=== PATIENT | female | born 1990 | race Caucasian/White ===

== ENCOUNTER 2017-08-20 14:48 | Emergency (ER) | payer BC, OTHER ==
[2017-08-20] MEDS ORDERED: LIDOCAINE 2% VISCOUS SOLN 20 ML UDCUP PO ONE (15:56)
[2017-08-20] MEDS ORDERED: MAG HYDROX/AL HYDROX/SIMETH SUSP 30 ML UDCUP PO ONE (15:56)
[2017-08-20] MEDS ORDERED: METOCLOPRAMIDE HCL ORAL SOLN 10 MG/10 ML UDCUP PO ONE (15:56)
--- NOTE | 2017-08-20 15:57 | ER Document Report ---
ED General - General Chief Complaint: Abdominal Pain Stated Complaint: ABDOMINAL PAIN,NAUSEA Time Seen by Provider: 08/20/17 15:37 Mode of Arrival: Ambulatory Information source: Patient Notes: 26-year-old female presents with complaints of epigastric abdominal pain of one- week duration. Patient notes it is a gnawing sensation, feels that she is hungry but she is not. Patient notes gastric reflux heartburn sensations. She denies any fevers or chills denies any nausea vomiting TRAVEL OUTSIDE OF THE [place] IN LAST 30 DAYS: No - HPI Onset: Last week Onset/Duration: Persistent Quality of pain: Burning Severity: Mild Pain Level: 1 Associated symptoms: Other Exacerbated by: Food Relieved by: Food Similar symptoms previously: No Recently seen / treated by doctor: No - Related Data Allergies/Adverse Reactions: No Known Allergies Allergy (Unverified 08/20/17 14:49) Past Medical History - Social History Smoking Status: Current Some Day Smoker Cigarette use (# per day): Yes Chew tobacco use (# tins/day): No Smoking Education Provided: No Frequency of alcohol use: Occasional Drug Abuse: None Family History: Reviewed & Not Pertinent Patient has suicidal ideation: No Patient has homicidal ideation: No Renal/ Medical History: Denies: Hx Peritoneal Dialysis Review of Systems - Review of Systems Notes: REVIEW OF SYSTEMS: CONSTITUTIONAL : Denies fever, chills, or sweats. Denies recent illness. EENT: Denies eye, ear, throat, or mouth pain or symptoms. Denies nasal or sinus congestion or discharge. Denies throat, tongue, or mouth swelling or difficulty swallowing. CARDIOVASCULAR: Denies chest pain. Denies palpitations or racing or irregular heart beat. Denies ankle edema. RESPIRATORY: Denies cough, cold, or chest congestion. Denies shortness of breath, difficulty breathing, or wheezing. GASTROINTESTINAL: Admits to epigastric pain GENITOURINARY: Denies difficulty urinating, painful urination, burning, frequency, blood in urine, or discharge. FEMALE GENITOURINARY: Denies vaginal bleeding, heavy or abnormal periods, irregular periods. Denies vaginal discharge or odor. MUSCULOSKELETAL: Denies back or neck pain or stiffness. Denies joint pain or swelling. SKIN: Denies rash, lesions or sores. HEMATOLOGIC : Denies easy bruising or bleeding. LYMPHATIC: Denies swollen, enlarged glands. NEUROLOGICAL: Denies confusion or altered mental status. Denies passing out or loss of consciousness. Denies dizziness or lightheadedness. Denies headache. Denies weakness or paralysis or loss of use of either side. Denies problems with gait or speech. Denies sensory loss, numbness, or tingling. Denies seizures. PSYCHIATRIC: Denies anxiety or stress. Denies depression, suicidal ideation, or homicidal ideation. ALL OTHER SYSTEMS REVIEWED AND NEGATIVE. PHYSICAL EXAMINATION: GENERAL: Well-appearing, well-nourished and in no acute distress. HEAD: Atraumatic, normocephalic. EYES: Pupils equal round and reactive to light, extraocular movements intact, conjunctiva are normal. ENT: Nares patent, oropharynx clear without exudates. Moist mucous membranes. NECK: Normal range of motion, supple without lymphadenopathy LUNGS: Breath sounds clear to auscultation bilaterally and equal. No wheezes rales or rhonchi. HEART: Regular rate and rhythm without murmurs ABDOMEN: Soft, minimally tender in epigastric region, nondistended abdomen. No guarding, no rebound. No masses appreciated. Female : deferred Musculoskeletal: Normal range of motion, no pitting or edema. No cyanosis. NEUROLOGICAL: Cranial nerves grossly intact. Normal speech, normal gait. Normal sensory, motor exams PSYCH: Normal mood, normal affect. SKIN: Warm, Dry, normal turgor, no rashes or lesions noted. Dictation was performed using [employer] voice recognition software Physical Exam - Vital signs Vitals: Temp Pulse Resp BP Pulse Ox 98.5 F 72 18 131/80 H 98 08/20/17 15:04 08/20/17 15:04 08/20/17 15:04 08/20/17 15:04 08/20/17 15:04 Course - Re-evaluation Re-evalutation: 08/20/17 19:44 Patient was given GI cocktail symptoms have resolved, epigastric pain is probably secondary to an ulceration versus gastric reflux, lab work noted no significant abnormality, I will discharge the patient home to continue the cimetidine that she is already on 200 mg twice daily Patient has been given GI follow-up very strict return precautions H. pylori testing pending After performing a Medical Screening Examination, I estimate there is LOW risk for ACUTE APPENDICITIS, BOWEL OBSTRUCTION, ACUTE CHOLECYSTITIS, PERFORATED DIVERTICULITIS, INCARCERATED HERNIA, PANCREATITIS, PELVIC INFLAMMATORY DISEASE, PERFORATED ULCER, ECTOPIC , or TUBO-OVARIAN ABSCESS, thus I consider the discharge disposition reasonable. Also, there is no evidence or peritonitis , sepsis, or toxicity. I have reevaluated this patient multiple times and no significant life threatening changes are noted. The patient and I have discussed the diagnosis and risks, and we agree with discharging home with close follow-up with the understanding that symptoms and presentations can change. We also discussed returning to the Emergency Department immediately if new or worsening symptoms occur. We have discussed the symptoms which are most concerning (e.g., bloody stool, fever, changing or worsening pain, vomiting) that necessitate immediate return. - Vital Signs Vital signs: Temp Pulse Resp BP Pulse Ox 97.5 F 84 16 132/82 H 100 08/20/17 17:27 08/20/17 17:27 08/20/17 17:27 08/20/17 17:27 08/20/17 17:27 - Laboratory Result Diagrams: 08/20/17 16:04 08/20/17 16:04 Laboratory results interpreted by me: 08/20/17 16:04 Calcium 10.3 H Albumin 5.2 H Discharge - Discharge Clinical Impression: Epigastric pain GERD (gastroesophageal reflux disease) Qualifiers: Esophagitis presence: with esophagitis Qualified Code(s): K21.0 - Gastro- esophageal reflux disease with esophagitis Condition: Stable Disposition: HOME, SELF-CARE Instructions: Reflux Disease (GERD) ([facility]) Referrals: NELSON RIVERA MD [ACTIVE STAFF] - Follow up in 3-5 days
[2017-08-20 16:13] LABS: ABSOLUTE EOSINOPHILS # (AUTO) 0.1 10^3/uL (0.0-0.6); ABSOLUTE LYMPHOCYTES (AUTO) 1.5 10^3/uL (0.5-4.7); ABSOLUTE MONOCYTES (AUTO) 0.3 10^3/uL (0.1-1.4); ABSOLUTE NEUT (AUTO) 3.9 10^3/uL (1.7-8.2); BASOPHILS % (AUTO) 0.6 % (0-2); EOSINOPHILS % (AUTO) 2.2 % (0-6); HEMOGLOBIN 15.2 g/dL (12.0-15.5); MEAN CORPUSCULAR HEMOGLOBIN 29.9 pg (27.0-33.4); MEAN CORPUSCULAR HGB CONC 34.5 g/dL (32.0-36.0); MEAN CORPUSCULAR VOLUME 87 fl (80-97); MONOCYTES % (AUTO) 5.2 % (3-13); PLATELET COUNT 251 10^3/uL (150-450); RED BLOOD COUNT 5.08 10^6/uL (3.72-5.28); RED CELL DISTRIBUTION WIDTH 12.7 % (11.5-14.0); TOTAL CELLS COUNTED % (AUTO) 100 %
[2017-08-20 16:31] LABS: ALANINE AMINOTRANSFERASE 34 U/L (9-52); ALBUMIN 5.2 g/dL (3.5-5.0); ALKALINE PHOSPHATASE 71 U/L (38-126); ANION GAP 12 (5-19); ASPARTATE AMINO TRANSFERASE 20 U/L (14-36); BILIRUBIN,DIRECT 0.3 mg/dL (0.0-0.4); BILIRUBIN,TOTAL 0.5 mg/dL (0.2-1.3); BLOOD UREA NITROGEN 11 mg/dL (7-20); CALCIUM 10.3 mg/dL (8.4-10.2); CARBON DIOXIDE 29 mmol/L (22-30); CHLORIDE 99 mmol/L (98-107); GLUCOSE 94 mg/dL (75-110); LIPASE 92.7 U/L (23-300); POTASSIUM 4.4 mmol/L (3.6-5.0); SODIUM 139.7 mmol/L (137-145); TOTAL PROTEIN 8.1 g/dL (6.3-8.2)
[2017-08-20 17:28] VITALS: BP 132/82
== END 2017-08-20 17:40 | disposition home or self-care (01) ==
LOC: ER 14:48
DX: R10.13 Epigastric pain (principal); F17.210 Nicotine dependence, cigarettes, uncomplicated; K21.0 Gastro-esophageal reflux disease with esophagitis
CPT/HCPCS: 99284; 86677 ×3; 36415; 83690; 85025; 80053; J3490

== ENCOUNTER → 2018-10-25 | Outpatient (CLI) | payer SELFPAY ==
--- NOTE | 2018-10-25 14:20 | RADIOLOGY REPORT (SQ) ---
EXAM DESCRIPTION: U/S [id number] TRNABD 1GES W/ODOP COMPLETED DATE/TIME: 10/25/2018 1:28 pm REASON FOR STUDY: Z34.01 ENCOUNTER FOR SUPERVISION OF NORMAL FIRST , FIRST TRIMESTER Z34.01 ENCNTR FOR SUPRVSN OF NORMAL FIRST PREG, FIRST TRIMES COMPARISON: None. TECHNIQUE: Transabdominal static and realtime grayscale images acquired of the pelvis. Additional se lected spectral and color Doppler images recorded. All images stored on PACs. bHCG: Not available CLINICAL DATES: LMP 08/18/2018. 9 weeks 5 days. LIMITATIONS: None. FINDINGS: FETUS: Single Living intrauterine . ULTRASOUND EGA: 9 weeks 5 days. ULTRASOUND NAZANIN: 05/25/2019. EFW: Not applicable less than 20 weeks. CRL: 2.8 cm. FHR: 157 beats per minute. SURVEY: Too early to assess. AMNIOTIC FLUID: Adequate amount. PLACENTA: Not yet developed due to early gestation. SUBCHORIONIC BLEED: No SIZE OF BLEED: Not applicable. UTERUS: No masses or anomalies. 12.1 x 7 x 6.9 cm. CERVICAL LENGTH: 2.6 cm. Closed. RIGHT ADNEXA: Normal ovary with normal vascular flow. There is a 1.8 x 1.7 x 1.4 cm corpus luteum. No adnexal free fluid. No adnexal masses. LEFT ADNEXA: Ovary not seen. No adnexal free fluid. No adnexal masses. FREE FLUID: None. OTHER: No other significant finding. IMPRESSION: LIVING INTRAUTERINE . EGA 9 weeks 5 days. Trimester of : First - 0 to 13 weeks. TECHNICAL DOCUMENTATION: JOB ID: [id number]- All Rights Reserved rev-12/18 Reading location - IP/workstation name: [email or web address]
== END ==
LOC: RAD 13:34
PROVIDERS: ATTEND Midwife
DX: Z34.01 Encounter for supervision of normal first pregnancy, first trimester (principal)
CPT/HCPCS: 76801

== ENCOUNTER 2019-05-20 16:23 | Inpatient (IN) | payer MEDICAID ==
[2019-05-20] MEDS ORDERED: OXYTOCIN/NORMAL SALINE 20 UNIT/1,000 ML RTUINJ IV PRN (16:30)
[2019-05-20] MEDS ORDERED: RINGERS SOLUTION,LACTATED 300 ML IV ONE (16:30)
[2019-05-20 17:09] LABS: ABSOLUTE EOSINOPHILS # (AUTO) 0.1 10^3/uL (0.0-0.6); ABSOLUTE LYMPHOCYTES (AUTO) 1.4 10^3/uL (0.5-4.7); ABSOLUTE MONOCYTES (AUTO) 0.3 10^3/uL (0.1-1.4); ABSOLUTE NEUT (AUTO) 6.7 10^3/uL (1.7-8.2); BASOPHILS % (AUTO) 0.3 % (0-2); EOSINOPHILS % (AUTO) 1.5 % (0-6); HEMATOCRIT 33.2 % (36.0-47.0); HEMOGLOBIN 11.3 g/dL (12.0-15.5); LYMPHOCYTES % (AUTO) 16.1 % (13-45); MEAN CORPUSCULAR HGB CONC 34.1 g/dL (32.0-36.0); MEAN CORPUSCULAR VOLUME 85 fl (80-97); MONOCYTES % (AUTO) 3.9 % (3-13); PLATELET COUNT 221 10^3/uL (150-450); RED BLOOD COUNT 3.91 10^6/uL (3.72-5.28); RED CELL DISTRIBUTION WIDTH 13.9 % (11.5-14.0); SEGMENTED NEUTROPHILS % (AUTO) 78.2 % (42-78); TOTAL CELLS COUNTED % (AUTO) 100 %; WHITE BLOOD COUNT 8.6 10^3/uL (4.0-10.5)
--- NOTE | 2019-05-20 17:09 | Admission Physical ---
Datetime Report Generated by CPN: 05/20/2019 17:09 CURRENT ADMISSION Chief Complaint: Sent from OB Office for Evaluation and Treatment - Please Specify Indication for Induction: PreEclampsia Admit Impression : Term, Intrauterine Admit Plan: Initiate Labor Induction Protocol Admit Plan- Other: GBS neg Pr/Cr 1.5 at [facility] and visual changes today seen at [facility] by Dr. Marquez ALLERGIES Medication Allergies: No Known Allergies (08/20/2017) OBSTETRICAL HISTORY EDC: 05/25/2019 00:00 : 1 Para: 0 Term: 0 : 0 SAB: 0 IAB: 0 Ectopic: 0 Livin Cesareans: 0 VBACs: 0 Multiple Births: 0 SEE RECORDS Alcohol: No Marijuana : No Cocaine: No Other Illicit Drugs: No Cigarettes: Former Smoker. [id number] PHYSICAL EXAM General: Normal HEENT: Normal Neurologic: Normal Thyroid: Deferred Heart: Normal Lungs: Normal Breast: Deferred Back: Deferred Abdomen: Normal Genitourinary Exam: Normal Extremities: Normal DTRs: Normal Pelvic Type: Adequate Physical Exam Comments: cervix exam per Dr. Marquez Vital Signs: Reviewed FETUS A EGA: 39.2 Monitoring: External US FHR- Baseline: 135 Variability: Moderate 6-25bpm Accelerations: 15X15 FHR Category: Category I PLANS FOR LABOR AND DELIVERY Labor and Delivery: None Pain Management: Epidural Feeding Preference: Breast Benefit of Breast Feed Discussed: Yes Circumcision: N/A INFORMED CONSENT Assignment: Giles Wu MD Signature: with User ID: [email or web address] : with User ID: [email or web address]
[2019-05-20 17:19] LABS: APPEARANCE,URINE SLIGHTLY-CLOUDY; BILIRUBIN,URINE NEGATIVE (NEGATIVE); COLOR,URINE YELLOW; GLUCOSE, URINE NEGATIVE (NEGATIVE); KETONES,URINE 20 mg/dL (NEGATIVE); LEUKOCYTE ESTERASE,URINE TRACE (NEGATIVE); NITRITE,URINE NEGATIVE (NEGATIVE); PROTEIN,URINE >=500 mg/dL (NEGATIVE); URINE SPECIFIC GRAVITY 1.025; UROBILINOGEN,URINE NEGATIVE mg/dL (<2.0)
[2019-05-20 17:25] LABS: ALBUMIN 3.5 g/dL (3.5-5.0); ALKALINE PHOSPHATASE 150 U/L (38-126); ANION GAP 13 (5-19); ASPARTATE AMINO TRANSFERASE 20 U/L (14-36); BILIRUBIN,DIRECT 0.1 mg/dL (0.0-0.4); BILIRUBIN,TOTAL 0.4 mg/dL (0.2-1.3); BLOOD UREA NITROGEN 6 mg/dL (7-20); CALCIUM 9.1 mg/dL (8.4-10.2); CARBON DIOXIDE 19 mmol/L (22-30); CHLORIDE 103 mmol/L (98-107); GLUCOSE 133 mg/dL (75-110); POTASSIUM 3.9 mmol/L (3.6-5.0); TOTAL PROTEIN 6.4 g/dL (6.3-8.2); URIC ACID 3.8 mg/dL (2.5-6.2)
[2019-05-20 17:31] LABS: URINE AMPHETAMINES SCREEN NEGATIVE; URINE BARBITURATES SCREEN NEGATIVE; URINE BENZODIAZEPINES SCREEN NEGATIVE; URINE COCAINE SCREEN NEGATIVE; URINE MARIJUANA (THC) SCREEN NEGATIVE; URINE METHADONE SCREEN NEGATIVE; URINE PHENCYCLIDINE SCREEN NEGATIVE
[2019-05-20] MEDS ORDERED: OXYTOCIN/NORMAL SALINE 20 UNIT/1,000 ML RTUINJ ONE (18:08)
[2019-05-20] MEDS: RINGERS SOLUTION,LACTATED 1,000 ML IV PRN ×2 (20:27→23:05)
[2019-05-20] MEDS ORDERED: HYDRALAZINE HCL INJ/PF 20 MG/1 ML SDV ONE (21:50)
[2019-05-20] MEDS ORDERED: EPHEDRINE SULFATE INJ 50 MG/1 ML AMPULE ONE (21:51)
[2019-05-20] MEDS ORDERED: FENTANYL CITRATE INJ/PF 100 MCG/2 ML AMPUL ONE (21:51)
[2019-05-20] MEDS ORDERED: BUPIVACAINE HCL 0.25 % INJ/PF (2.5 MG/1 ML) 30 ML VIAL ONE (21:51)
[2019-05-20] MEDS ORDERED: FENTANYL/BUPIVACAINE/NS/PF 300 MCG/150 ML RTUINJ EPI ONE (21:51)
[2019-05-20] MEDS ORDERED: DIPHENHYDRAMINE HCL 50 MG/ML VIAL ONE (23:13)
[2019-05-20] MEDS ORDERED: LIDOCAINE 1% INJ-PF (10 MG/ML) 30 ML SDV ONE (23:14)
[2019-05-20] MEDS ORDERED: MISOPROSTOL 0.2 MG TABLET ONE (23:14)
[2019-05-20] MEDS ORDERED: OXYTOCIN 10 UNIT/ML VIAL ONE (23:15)
[2019-05-21] MEDS ORDERED: LIDOCAINE 2% INJ-PF (20 MG/ML) 10 ML AMPUL ONE (03:48)
[2019-05-21] MEDS ORDERED: IBUPROFEN 800 MG TABLET ONE ×2 (06:16→10:44)
--- NOTE | 2019-05-21 09:56 | Delivery Summary ---
Del Sum A-C Datetime Report Generated by CPN: 05/21/2019 09:55 DELIVERY PERSONNEL DELIVERY PERSONNEL: [id number] Delivery Doctor:: Giles Wu MD Labor and Delivery Nurse:: Helen Marin RNskein inspector Nurse:: Rain Winters RN Nursery Nurse:: Lou Brown, RN MATERNAL INFORMATION Delivery Anesthesia: Epidural Medications After Delivery: Pitocin Bolus-Please Comment Estimated Blood Loss (ml): 250 Delivery QBL: 289 Delivery QBL Comment: 200 mL amniotic fluid prior to delivery Maternal Complications: None LABOR SUMMARY EDC: 05/25/2019 00:00 No. Babies in Womb: 1 Attempted: No Labor Anesthesia: Epidural LABOR INFORMATION Reason for Induction: Pre-Eclampsia Onset of Labor: 05/21/2019 21:27 Complete Dilatation: 05/21/2019 03:35 Oxytocin: Induction Group B Beta Strep: Negative Antibiotics # of Doses: 0 Steroids Given: None Reason Steroids Not Administered: Not Applicable MEMBRANES Membranes Rupture Method: Spontaneous Rupture of Membranes: 05/20/2019 21:27 Length of Rupture (hr): 8.53 Amniotic Fluid Color: Clear Amniotic Fluid Amount: Moderate Amniotic Fluid Odor: Normal STAGES OF LABOR Stage 1 hr: -17 Stage 1 min: -52 Stage 2 hr: 2 Stage 2 min: 24 Stage 3 hr: 0 Stage 3 min: 5 Total Time in Labor hr: -15 Total Time in Labor min: -23 VAGINAL DELIVERY Episiotomy: None Laceration #1: Perineal Laceration Extension #1: First Degree Laceration #2: None Laceration Extension #2: N/A Laceration #3: None Laceration Extension #3: N/A Laceration Repair: Yes Laceration Repair Note: repair with 3-0 chromic in usual fashion Sponge Count Correct: Vaginal Sweep Performed Sharps Count Correct: Yes BABY A INFORMATION Infant Delivery Date/Time: 05/21/2019 05:59 Method of Delivery: Vaginal Born in Route : No : N/A Forceps: N/A Vacuum Extraction: N/A Shoulder Dystocia : Yes SHOULDER DYSTOCIA BABY A Delivery of Head: 05/21/2019 05:58 Time Head to Delivery : 1.0 1st Intervention to Resolve: McRobert's Maneuver 2nd Intervention to Resolve: Mccray Maneuver Verify NO Fundal Pressure: No Fundal Pressure Applied Arm Under Symphisis at Del: Left PRESENTATION/POSITION BABY A Presentation: Cephalic Cephalic Presentation: Vertex Vertex Position: Right Occipital Anterior Breech Presentation: N/A PLACENTA INFORMATION BABY A Placenta Delivery Time : 05/21/2019 06:04 Placenta Method of Delivery: Spontaneous Placenta Status: Delivered SCORES BABY A Heart Rate 1 min: >100 bpm Resp Effort 1 min: Good Cry Reflex Irritability 1 min: Cough or Sneeze or Pulls Away Muscle Tone 1 min: Active Motion Color 1 min: Body [place], Extremities Blue SCORE 1 MIN: 9 Heart Rate 5 min: >100 bpm Resp Effort 5 min: Good Cry Reflex Irritability 5 min: Cough or Sneeze or Pulls Away Muscle Tone 5 min: Active Motion Color 5 min: Body [place], Extremities Blue SCORE 5 MIN: 9 INFANT INFORMATION BABY A Gestational Age at Delivery: 39.3 Gestational Status: Full Term- 39- 40.6 Weeks Infant Outcome : Liveborn Infant Condition : Stable Sex: Female IDENTIFICATION BABY A Verification Date/Time: 05/21/2019 06:35 ID Band Number: [id number] Mother's Name Verified: Yes RN Verifying : Samir Marin, RN Additional Verifying Personnel: Luana Winters, RN WEIGHT/LENGTH BABY A Infant Birthweight (gm): 3484 Weight (lb): 7 Weight (oz): 11 Infant Length (in): 20.00 Length (cm): 50.80 CORD INFORMATION BABY A No. Cord Vessels: 3 Nuchal Cord : Around Neck x2, Tight Cord Blood Taken: Yes-For Eval (Mom's Blood Type - or O+) Infant Suction: None ASSESSMENT BABY A Complications: Multiple Late Decels; Multiple Variable Decels; Shoulder Dystocia Physical Findings at Delivery: Caput Succedaneum Infant Respirations: Appears Normal Skin to Skin: Yes Skin to Skin Time (min): 60 Fabric Pattern Grader/ALS Called : No Transferred To: Remains with Mother BABY B INFORMATION : N/A SIGNATURES Signature: with User ID: [email or web address] : I was personally available for consultation and serving as supervising physician for the MLP.
[2019-05-21] MEDS ORDERED: PRENATAL VITAMIN W DHA CAPSULE PO ONE (10:43)
[2019-05-21] MEDS ORDERED: SENNOSIDES/DOCUSATE 8.6-50 MG 1 EACH TABLET ONE (10:43)
[2019-05-21] MEDS ORDERED: DOCUSATE SODIUM 100 MG CAPSULE ONE (10:44)
[2019-05-21] MEDS ORDERED: FERROUS SULFATE 325 MG TABLET PO ONE (10:44)
[2019-05-21] MEDS ORDERED: ZOLPIDEM TARTRATE 5 MG TABLET PO PRN (15:45)
[2019-05-21] MEDS ORDERED: BENZOCAINE/MENTHOL AEROSOL SPRAY 56 ML TOP PRN (15:45)
[2019-05-21] MEDS ORDERED: ACETAMINOPHEN WITH CODEINE #3 TABLET PO PRN (15:45)
[2019-05-21] MEDS ORDERED: MEASLES,MUMPS&RUBELLA VACC/PF 0.5 ML VIAL SUBCUT PRN (15:45)
[2019-05-21] MEDS ORDERED: DIBUCAINE 1% OINTMENT 56 GM TP PRN (15:45)
[2019-05-21] MEDS ORDERED: DIPH/PERTUSS(ACELL)/TETANUS VAC/PF 0.5 ML SYR (>=10YO) IM PRN (15:45)
[2019-05-21] MEDS: ACETAMINOPHEN WITH CODEINE #3 TABLET PO PRN ×2 (16:40→21:13)
[2019-05-21] MEDS: IBUPROFEN 800 MG TABLET PO SCH ×2 (16:50→21:12)
[2019-05-21] MEDS: DOCUSATE SODIUM 100 MG CAPSULE PO SCH (17:53)
[2019-05-21] MEDS: PRENATAL VITAMIN W DHA CAPSULE PO SCH (17:54)
[2019-05-21] MEDS: FERROUS SULFATE 325 MG TABLET PO SCH (17:54)
[2019-05-21] MEDS: SENNOSIDES/DOCUSATE 8.6-50 MG 1 EACH TABLET PO SCH (17:54)
[2019-05-22] MEDS: IBUPROFEN 800 MG TABLET PO SCH ×3 (05:53→22:38)
[2019-05-22] MEDS: ACETAMINOPHEN WITH CODEINE #3 TABLET PO PRN ×3 (05:55→22:41)
[2019-05-22] MEDS ORDERED: INFLUENZA QUAD (6MOS+) 2019-20 VAC 0.5 ML SYR IM ONE (08:00)
[2019-05-22] MEDS: PRENATAL VITAMIN W DHA CAPSULE PO SCH (10:30)
[2019-05-22] MEDS: FERROUS SULFATE 325 MG TABLET PO SCH ×2 (10:30→18:52)
[2019-05-22] MEDS: SENNOSIDES/DOCUSATE 8.6-50 MG 1 EACH TABLET PO SCH (10:30)
[2019-05-22] MEDS: DOCUSATE SODIUM 100 MG CAPSULE PO SCH ×2 (10:30→18:51)
[2019-05-22 11:27] LABS: ABSOLUTE EOSINOPHILS # (AUTO) 0.1 10^3/uL (0.0-0.6); ABSOLUTE LYMPHOCYTES (AUTO) 1.7 10^3/uL (0.5-4.7); ABSOLUTE MONOCYTES (AUTO) 0.4 10^3/uL (0.1-1.4); ABSOLUTE NEUT (AUTO) 4.4 10^3/uL (1.7-8.2); BASOPHILS % (AUTO) 0.3 % (0-2); EOSINOPHILS % (AUTO) 2.1 % (0-6); HEMATOCRIT 27.8 % (36.0-47.0); HEMOGLOBIN 9.4 g/dL (12.0-15.5); LYMPHOCYTES % (AUTO) 26.2 % (13-45); MEAN CORPUSCULAR HEMOGLOBIN 29.5 pg (27.0-33.4); MEAN CORPUSCULAR HGB CONC 33.9 g/dL (32.0-36.0); MEAN CORPUSCULAR VOLUME 87 fl (80-97); MONOCYTES % (AUTO) 5.3 % (3-13); PLATELET COUNT 163 10^3/uL (150-450); SEGMENTED NEUTROPHILS % (AUTO) 66.1 % (42-78); TOTAL CELLS COUNTED % (AUTO) 100 %; WHITE BLOOD COUNT 6.6 10^3/uL (4.0-10.5)
--- NOTE | 2019-05-22 13:07 | PDOC PROGRESS REPORT ---
Subjective-OB Progress Note for:: 05/22/19 Subjective: Pt doing well, no concerns. She denies headache. Reports light bleeding, reg diet and voiding without difficulty. Physical Exam (OB) Vital Signs: Temp Pulse Resp BP Pulse Ox 98.4 F 95 18 131/76 H 99 05/22/19 11:12 05/22/19 11:12 05/22/19 11:12 05/22/19 11:12 05/22/19 11:12 Intake & Output 05/21/19 05/22/19 05/23/19 06:59 06:59 06:59 Intake Total 329 1000 Balance 329 1000 Weight 104 kg - PIH/Pre-Eclampsia DTR's: 2 + Clonus: Negative Headache: Absent Epigastric Pain: No Visual Changes: No - Lochia Lochia Amount: Scant < 10 ml Lochia Color: Rubra/Red - Abdomen Description: Tender, Soft Hernia Present: No Fundal Description: Firm, Midline Fundal Height: u/u - u/2 Objective-Diagnostic Laboratory: 05/22/19 07:23 05/20/19 16:53 05/22/19 05/22/19 07:23 07:23 WBC 6.6 RBC 3.20 L Hgb 9.4 L Hct 27.8 L MCV 87 MCH 29.5 MCHC 33.9 RDW 14.0 Plt Count 163 Seg Neutrophils % 66.1 Blood Type O NEGATIVE Assessment and Plan(PN) - Assessment and Plan (1) Pre-eclampsia in third trimester Is this a current diagnosis for this admission?: Yes (2) Vaginal delivery Is this a current diagnosis for this admission?: Yes - Time Spent with Patient Time with patient: Less than 15 minutes Medications reviewed and adjusted accordingly: Yes - Disposition Anticipated Discharge: Home Within: within 24 hours
[2019-05-23] MEDS: IBUPROFEN 800 MG TABLET PO SCH (06:01)
[2019-05-23] MEDS: ACETAMINOPHEN WITH CODEINE #3 TABLET PO PRN (06:03)
[2019-05-23] MEDS: FERROUS SULFATE 325 MG TABLET PO SCH (09:53)
[2019-05-23] MEDS: SENNOSIDES/DOCUSATE 8.6-50 MG 1 EACH TABLET PO SCH (09:53)
[2019-05-23] MEDS: DOCUSATE SODIUM 100 MG CAPSULE PO SCH (09:53)
[2019-05-23] MEDS: PRENATAL VITAMIN W DHA CAPSULE PO SCH (09:53)
--- NOTE | 2019-05-23 10:43 | PDOC PROGRESS REPORT ---
Subjective-OB Progress Note for:: 05/23/19 Subjective: Doing well, breast feeding, hsb in room, scant bleeding, no c/o Physical Exam (OB) Vital Signs: Temp Pulse Resp BP Pulse Ox 98.1 F 92 16 133/82 H 99 05/23/19 08:05 05/23/19 08:05 05/23/19 08:05 05/23/19 08:05 05/23/19 08:05 Intake & Output 05/22/19 05/23/19 05/24/19 06:59 06:59 06:59 Intake Total 1000 600 Balance 1000 600 - PIH/Pre-Eclampsia DTR's: 1 + Clonus: Negative Headache: Absent Epigastric Pain: No Visual Changes: No - Lochia Lochia Amount: Scant < 10 ml Lochia Color: Rubra/Red - Abdomen Description: Soft, Round Hernia Present: No Fundal Description: Firm, Midline Fundal Height: u/u - u/2 Objective-Diagnostic Laboratory: 05/22/19 07:23 05/20/19 16:53 05/22/19 05/22/19 07:23 07:23 WBC 6.6 RBC 3.20 L Hgb 9.4 L Hct 27.8 L MCV 87 MCH 29.5 MCHC 33.9 RDW 14.0 Plt Count 163 Seg Neutrophils % 66.1 Blood Type O NEGATIVE Assessment and Plan(PN) - Assessment and Plan (1) Anemia Qualifiers: Anemia type: iron deficiency Is this a current diagnosis for this admission?: Yes (2) Vaginal delivery Is this a current diagnosis for this admission?: Yes (3) Pre-eclampsia in third trimester Is this a current diagnosis for this admission?: Yes - Time Spent with Patient Time with patient: Less than 15 minutes Medications reviewed and adjusted accordingly: Yes - Disposition Anticipated Discharge: Home Within: within 24 hours
--- NOTE | 2019-05-23 10:48 | PDOC DISCHARGE SUMMARY ---
Impression - Admit/DC Date/PCP Admission Date/Primary Care Provider: 05/20/19 17:24 ALVAREZ SPRAGUE MD Discharge Date: 05/23/19 - Discharge Diagnosis (1) Anemia Is this a current diagnosis for this admission?: Yes (2) Vaginal delivery Is this a current diagnosis for this admission?: Yes (3) Pre-eclampsia in third trimester Is this a current diagnosis for this admission?: Yes - Additional Information Resuscitation Status: Full Code Discharge Diet: As Tolerated, Regular Discharge Activity: Activity As Tolerated, No Lifting Over 10 Pounds, No Lifting/Push/Pulling, Pelvic Rest Referrals: ALVAREZ SPRAGUE MD [Primary Care Provider] - (Thursday for BP check) Home Medications: Pnv 102/Iron/Folate 1/Dss/Dha [Vitafol Fe+ Docusate Combo Pck] 1 tab PO DAILY 05/20/19 HPI Gestational Age: 39.3 Reason(s) for Admission: Induction of Labor Admission Note: Pre-eclampsia Procedures: NST, Ultrasound Intrapartum Procedure(s): Spontaneous Vaginal Delivery Intrapartum Procedure Note: shoulder dystocia, lates and variables decelerations Complication(s): Laceration-Perineal Laceration-Degree: 1st - girl, wt 7-11, 9/9 apgars Hospital Course Hospital Course: routine Results Laboratory Results: WBC 6.6 10^3/uL (4.0-10.5) 05/22/19 07:23 RBC 3.20 10^6/uL (3.72-5.28) L 05/22/19 07:23 Hgb 9.4 g/dL (12.0-15.5) L 05/22/19 07:23 Hct 27.8 % (36.0-47.0) L 05/22/19 07:23 MCV 87 fl (80-97) 05/22/19 07:23 MCH 29.5 pg (27.0-33.4) 05/22/19 07:23 MCHC 33.9 g/dL (32.0-36.0) 05/22/19 07:23 RDW 14.0 % (11.5-14.0) 05/22/19 07:23 Plt Count 163 10^3/uL (150-450) 05/22/19 07:23 Lymph % (Auto) 26.2 % (13-45) 05/22/19 07:23 [place] % (Auto) 5.3 % (3-13) 05/22/19 07:23 Eos % (Auto) 2.1 % (0-6) 05/22/19 07:23 Baso % (Auto) 0.3 % (0-2) 05/22/19 07:23 Absolute Neuts (auto) 4.4 10^3/uL (1.7-8.2) 05/22/19 07:23 Absolute Lymphs (auto) 1.7 10^3/uL (0.5-4.7) 05/22/19 07:23 Absolute Monos (auto) 0.4 10^3/uL (0.1-1.4) 05/22/19 07:23 Absolute Eos (auto) 0.1 10^3/uL (0.0-0.6) 05/22/19 07:23 Absolute Basos (auto) 0.0 10^3/uL (0.0-0.2) 05/22/19 07:23 Seg Neutrophils % 66.1 % (42-78) 05/22/19 07:23 Sodium 134.7 mmol/L (137-145) L 05/20/19 16:53 Potassium 3.9 mmol/L (3.6-5.0) 05/20/19 16:53 Chloride 103 mmol/L (98-107) 05/20/19 16:53 Carbon Dioxide 19 mmol/L (22-30) L 05/20/19 16:53 Anion Gap 13 (5-19) 05/20/19 16:53 BUN 6 mg/dL (7-20) L 05/20/19 16:53 Creatinine 0.56 mg/dL (0.52-1.25) 05/20/19 16:53 Est GFR ( Amer) > 60 (>60) 05/20/19 16:53 Est GFR (MDRD) Non-Af > 60 (>60) 05/20/19 16:53 Glucose 133 mg/dL (75-110) H 05/20/19 16:53 Uric Acid 3.8 mg/dL (2.5-6.2) 05/20/19 16:53 Calcium 9.1 mg/dL (8.4-10.2) 05/20/19 16:53 Total Bilirubin 0.4 mg/dL (0.2-1.3) 05/20/19 16:53 Direct Bilirubin 0.1 mg/dL (0.0-0.4) 05/20/19 16:53 Neonat Total Bilirubin Not Reportable 05/20/19 16:53 Neonat Direct Bilirubin Not Reportable 05/20/19 16:53 Neonat Indirect Bili Not Reportable 05/20/19 16:53 AST 20 U/L (14-36) 05/20/19 16:53 ALT 13 U/L (<35) 05/20/19 16:53 Alkaline Phosphatase 150 U/L (38-126) H 05/20/19 16:53 Lactate Dehydrogenase 172 U/L (120-246) 05/20/19 16:53 Total Protein 6.4 g/dL (6.3-8.2) 05/20/19 16:53 Albumin 3.5 g/dL (3.5-5.0) 05/20/19 16:53 Urine Color YELLOW 05/20/19 15:44 Urine Appearance SLIGHTLY-CLOUDY 05/20/19 15:44 Urine pH 6.0 (5.0-9.0) 05/20/19 15:44 Ur Specific [place] 1.025 05/20/19 15:44 Urine Protein >=500 mg/dL (NEGATIVE) H 05/20/19 15:44 Urine Glucose (UA) NEGATIVE mg/dL (NEGATIVE) 05/20/19 15:44 Urine Ketones 20 mg/dL (NEGATIVE) H 05/20/19 15:44 Urine Blood NEGATIVE (NEGATIVE) 05/20/19 15:44 Urine Nitrite NEGATIVE (NEGATIVE) 05/20/19 15:44 Urine Bilirubin NEGATIVE (NEGATIVE) 05/20/19 15:44 Urine Urobilinogen NEGATIVE mg/dL (<2.0) 05/20/19 15:44 Ur Leukocyte Esterase TRACE (NEGATIVE) H 05/20/19 15:44 Urine WBC (Auto) 18 /HPF 05/20/19 15:44 Urine RBC (Auto) 1 /HPF 05/20/19 15:44 Urine Bacteria (Auto) 1+ /HPF 05/20/19 15:44 Squamous Epi Cells Auto 45 /HPF 05/20/19 15:44 Urine Mucus (Auto) MANY /LPF 05/20/19 15:44 Urine Ascorbic Acid NEGATIVE (NEGATIVE) 05/20/19 15:44 Urine Opiates Screen NEGATIVE 05/20/19 15:44 Urine Methadone Screen NEGATIVE 05/20/19 15:44 Ur Barbiturates Screen NEGATIVE 05/20/19 15:44 Ur Phencyclidine Scrn NEGATIVE 05/20/19 15:44 Ur Amphetamines Screen NEGATIVE 05/20/19 15:44 U Benzodiazepines Scrn NEGATIVE 05/20/19 15:44 Urine Cocaine Screen NEGATIVE 05/20/19 15:44 U Marijuana (THC) Screen NEGATIVE 05/20/19 15:44 RPR NONREACTIVE (NONREACTIVE) 05/20/19 15:44 Blood Type O NEGATIVE 05/22/19 07:23 Antibody Screen NEGATIVE 05/20/19 15:44 Screen NEGATIVE 05/22/19 07:23 Plan Health Concerns: BP Plan of Treatment: F/U on Thursday, reviewed S&S to report Goals: normal PP course
[2019-05-23 11:17] VITALS: BP 145/90
== END 2019-05-23 13:10 | disposition home or self-care (01) | DRG 807 ==
LOC: LC 16:23 → LR 17:24 → 2S 05-21 10:57 → LR 05-21 12:49 → 2S 05-21 15:35
PROVIDERS: ADMIT Obstetrics & Gynecology; ATTEND Obstetrics & Gynecology
PROC: 3E033VJ Introduction of Other Hormone into Peripheral Vein, Percutaneous Approach (ICD-10-PCS; 2019-05-20)
PROC: 10E0XZZ Delivery of Products of Conception, External Approach (ICD-10-PCS; principal; 2019-05-21)
PROC: 3E02340 Introduction of Influenza Vaccine into Muscle, Percutaneous Approach (ICD-10-PCS; 2019-05-23)
PROC: 3E0234Z Introduction of Serum, Toxoid and Vaccine into Muscle, Percutaneous Approach (ICD-10-PCS; 2019-05-23)
DX: O14.14 Severe pre-eclampsia complicating childbirth (principal); Z37.0 Single live birth; O26.893 Other specified pregnancy related conditions, third trimester; Z67.41 Type O blood, Rh negative; O99.02 Anemia complicating childbirth; O70.0 First degree perineal laceration during delivery; D50.9 Iron deficiency anemia, unspecified; O76 Abnormality in fetal heart rate and rhythm complicating labor and delivery; O69.1XX0 Labor and delivery complicated by cord around neck, with compression, not applicable or unspecified; O66.0 Obstructed labor due to shoulder dystocia; Z23 Encounter for immunization; Z3A.39 39 weeks gestation of pregnancy; Z87.891 Personal history of nicotine dependence
CPT/HCPCS: 36415; 59025; 80053; 80307; 81001; 83615; 84550; 85025; 85461; 86592; 86850; 86900; 86901; 90686; J0360; J1200; J2590; J2790; J3010; J3490